=== PATIENT | male | born 1955 | race Caucasian/White ===

== ENCOUNTER → 2017-07-08 | Outpatient (CLI) | payer BC, MEDICARE ==
[~2017-07-08] MED LIST: Acetaminophen-1 EAC1 PO; CLOP75 PO; CYCL10 PO; DIAZ5 PO; EFAV200 PO; KALETRA PO; LIDO700A20 TOP; METO50ER PO; METPRE4DP PO; Pravastatin Sod40 MG PO; SUSTIVA PO; TENO300 PO; VIREAD150 MG PO; Valium5 MG PO; Voltaren100 GM TOP
== END | disposition home or self-care (01) ==
LOC: LAB SRC 10:49 → LAB SHORT 10:49
DX: N39.0 Urinary tract infection, site not specified (principal)
CPT/HCPCS: 87077; 87086; 87186

== ENCOUNTER → 2017-08-09 | Outpatient (CLI) | payer MEDICARE, BC ==
[~2017-08-09] MED LIST changes: +AMLO5 PO; +ASPI81CH PO; +BIKTARVY 50-201 EACH PO; +PRAV20 PO; +Toprol Xl50 MG PO
[2017-08-09 12:08] LABS: Source, Urine Clean Catch
[2017-08-09 15:48] LABS: Appearance, Urine Clear (Clear); Bilirubin, Urine Neg (Neg); Blood, Urine Neg (Neg); Color, Urine Yellow (P-Yellow); Glucose Qualitative, Urine Neg (Neg); Ketones, Urine Neg (Neg); Leukocyte Esterase, Urine Neg (Neg); Nitrite, Urine Neg (Neg); Protein, Urine 1+ (Neg); Urobilinogen, Urine NORM (Normal)
== END ==
LOC: LAB SHORT 12:06 → LAB SRC 12:06
PROVIDERS: Nurse Practitioner Family
DX: R53.83 Other fatigue (principal); R82.99 Other abnormal findings in urine
CPT/HCPCS: 81003

== ENCOUNTER 2019-03-19 09:28 | Emergency (ER) | payer MEDICARE ==
[~2019-03-19] VITALS: Ht 172.7 cm; Wt 65.8 kg
[2019-03-19] MEDS ORDERED: Monodox100 MG PO (10:23)
== END 2019-03-19 10:30 | disposition home or self-care (01) ==
LOC: ER 09:28
DX: L03.115 Cellulitis of right lower limb (principal); I25.2 Old myocardial infarction; B20 Human immunodeficiency virus [HIV] disease; I10 Essential (primary) hypertension; Z87.891 Personal history of nicotine dependence; Z79.899 Other long term (current) drug therapy; Z88.1 Allergy status to other antibiotic agents
CPT/HCPCS: 99282

== ENCOUNTER 2020-05-04 09:35 | Observation (INO) | payer MEDICARE ==
[~2020-05-04] VITALS: Ht 170.2 cm; Wt 60.9 kg
[~2020-05-04 09:35] MED LIST changes: +Monodox100 MG PO
[2020-05-04] MEDS ORDERED: Prinivil10 MG PO (10:06)
[2020-05-04] MEDS ORDERED: METO50ER PO (10:07)
--- NOTE | 2020-05-04 15:10 | NUR ---
1500 PATIENT IS S/P PTCA AND STENT OF THE RCA AND PDA, CHEST PAIN INCREASED FROM 2/10 TO 7-8/10, STAT EKG DONE AND MD CALLED TO THE BEDSIDE. CONTINUE TO MONITOR AND STAT ECHO ORDERED TO THE DONE AT THE BEDSIDE.
[2020-05-04] MEDS ORDERED: ABAT250V (15:18)
[2020-05-04] MEDS ORDERED: HYDCHL25 PO (15:18)
[2020-05-04] MEDS ORDERED: PLAVIX75 MG PO (15:18)
--- NOTE | 2020-05-04 15:57 | NUR ---
PAIN SETTLING DOWN. WAXING AND WAINING BETWEEN 2-4/[address] RAMIREZ FREQUENTLY AT THE BEDSIDE TO CHECK ON PAITENT. SECOND LITER INFUSED AND NOW FLUIDS ORDERED AT 100 ML AN HOUR ORDERED. CONTINUE TO MONITOR.
--- NOTE | 2020-05-04 17:53 | NUR ---
SHIFT SUMMARY, ASSUMED CARE PT ARRIVED FROM [facility] AT APPROXIMATELY 1625. PT HAD TWO STENTS PLACED VIA RIGHT GROIN ACCESS. PT WAS IN RECOVERY AND PREPARED TO DISCHARGE HOME WHEN HE BECAME DIAPHORETIC AND HAD CHEST PAIN/PRESSURE. PT WAS THEN ADMITTED FOR EXTENDED RECOVERY TO PCU. PT'S GROIN ACCESS SITE IS C/D/I AND HAS A PRESSURE DRESSING. PT HAS REMAINED LAYING FLAT AND HAS HAD SOME INTERMITTEN CHEST PAIN BUT HAS REFUSED DILAUDID AT THIS TIME SINCE IT IS NOT CONSTANT. PT IS ON TELE AND IS READING SR AT 60 bpm. PT REPORTS PREVIOUS MN AND BYPASS WHILE IN [place]. PT REPORTS HE QUIT SMOKING ABOUT 3 WEEKS AGO AND DOES NOT DRINK OR USE DRUGS OTHER THAN MJ SEVERAL TIMES A WEEK. PT HAS NS RUNNING AT 100mL/HR AND IS IN BED RESTING AT THIS TIME. VS STABLE, PT ON RA
[2020-05-05 04:14] LABS: BASOPHILS ABSOLUTE AUTO 0.05 K/mm3 (0.00-0.23); BASOPHILS PERCENT AUTO 1 % (0-2); EOSINOPHILS ABSOLUTE AUTO 0.17 K/mm3 (0.00-0.68); EOSINOPHILS PERCENT AUTO 2 % (0-6); Hematocrit 41.3 % (37.0-53.0); Hemoglobin 14.2 g/dL (13.5-17.5); IMMATURE GRAN ABSOLUTE AUTO 0.02 K/mm3 (0.00-0.10); IMMATURE GRAN PERCENT AUTO 0 % (0-1); LYMPHOCYTES ABSOLUTE AUTO 2.36 K/mm3 (0.84-5.20); LYMPHOCYTES PERCENT AUTO 28 % (21-46); MONOCYTES ABSOLUTE AUTO 0.88 K/mm3 (0.16-1.47); MONOCYTES PERCENT AUTO 11 % (4-13); Mean Corpuscular HGB 30.8 pg (26.0-34.0); Mean Corpuscular HGB Conc 34.4 g/dL (31.5-36.5); Mean Corpuscular Volume 90 fL (80-100); Mean Platelet Volume 10.5 fL (9.1-12.4); NEUTROPHILS ABSOLUTE AUTO 4.87 K/mm3 (1.96-9.15); NEUTROPHILS PERCENT AUTO 58 % (41-73); Platelet Count 196 K/mm3 (150-400); RDW Coefficient Variation 13.9 % (11.7-14.2); RDW Standard Deviation 45.1 fL (35.1-46.3); Red Blood Cell Count 4.61 M/mm3 (4.30-5.90); White Blood Cell Count 8.35 K/mm3 (4.00-11.30)
[2020-05-05 04:29] LABS: Anion Gap 6 mmol/L (6-16); Blood Urea Nitrogen 16 mg/dL (8-24); CO2, Blood 26 mmol/L (21-32); Calcium, Blood 7.7 mg/dL (8.5-10.1); Chloride, Blood 109 mmol/L (98-108); Glomerular Filtration Rate >60 (60-); Glucose, Blood 101 mg/dL (70-99); Potassium, Blood 3.8 mmol/L (3.5-5.5); Sodium, Blood 141 mmol/L (136-145)
--- NOTE | 2020-05-05 05:47 | NUR ---
SHIFT SUMMARY PT IS ALERT, ORIENTED AND COOPERATIVE WITH CARE. 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 PT STATES MINIMAL PAIN, WELL CONTROLLED WITH PRN MEDICATIONS. PT STATED INTERMITTENT SHOOTING CHEST PAIN AT THE START OF SHIFT SUBSIDING TO DULL TIGHT FEELING BY AM WITH USE OF PRN MEDICATIONS. FEMORAL SITE IS UNCHANGED FROM START OF SHIFT, SMALL AMOUNT OF BLOOD AT INCISION, NO BRUISING, FIRMNESS, TENDERNESS, OR SWELLING. VITALS WERE STABLE WITH BP 140'S/70'S. HR 70-90'S. TELE SHOWING SINUS RHYTHM. PT HAD A QUIET UNEVENTFUL NIGHT AND IS EAGER FOR DISCHARGE.
--- NOTE | 2020-05-05 07:51 | NUR ---
ASSUMED CARE FROM NOC RN PT WAS SLEEPING DURING REPORT BUT WAS AROUSABLE WHEN EXAMINING THE GROIN ACCESS SITE. THE DRESSING IS C/D/I, NO ADDITIONAL DRAINAGE SINCE RN MIGUEL'S PREVIOUS EXAM YESTERDAY. PT WOKE FOR VITALS AND BREAKFAST THIS MORNING AND WAS ABLE TO SIT AT THE BEDSIDE FOR BREAKFAST. PT DENIED CHEST PAIN AND PRESSURE AND SOB.
--- NOTE | 2020-05-05 14:46 | NUR ---
DISCHARGE PT HAS DISCHARGED WITH INSTRUCTIONS ON CARING FOR THE FEMORAL SITE WELL ACTIVITY RESTRICTIONS. PT WAS ABLE TO GET DRESSED INDEPENDENTLY AND LEFT WITH HIS SPOUSE AND THE STRIPPER APPRENTICE VIA WHEELCHAIR. VS STABLE, PT DENIED CHEST PAIN AND CHEST PRESSURE. PT DISCHARGED AT APPROXIMATELY 1440.
== END 2020-05-05 14:20 | disposition home or self-care (01) ==
LOC: MHTC 09:35 → PCU 16:31 → MHTC 16:32 → PCU 16:32
PROVIDERS: Internal Medicine Cardiovascular Disease; ADMIT Internal Medicine Cardiovascular Disease
DX: I25.110 Atherosclerotic heart disease of native coronary artery with unstable angina pectoris (principal); R94.39 Abnormal result of other cardiovascular function study; I95.9 Hypotension, unspecified; I35.0 Nonrheumatic aortic (valve) stenosis; I10 Essential (primary) hypertension; E78.5 Hyperlipidemia, unspecified; F15.11 Other stimulant abuse, in remission; Z21 Asymptomatic human immunodeficiency virus [HIV] infection status; Z87.891 Personal history of nicotine dependence; Z91.14 Patient's other noncompliance with medication regimen; Z95.1 Presence of aortocoronary bypass graft; Z79.82 Long term (current) use of aspirin
CPT/HCPCS: 36415; 76937; 80048; 85025; 85347; 93005; 93010; 93308; 93459; 96374; 96376; 99152; 99153; A9270; C1725; C1760; C1769; C1874; C1887; C1894; C9600; G0378; J0360; J1644; J2250; J2270; J3010; J7030; J7050; Q9967

== ENCOUNTER 2020-05-10 15:02 | Emergency (ER) | payer MEDICARE ==
[~2020-05-10] VITALS: Ht 170.2 cm; Wt 64.0 kg
[~2020-05-10 15:02] MED LIST changes: +ABAT250V; +HYDCHL25 PO; +PLAVIX75 MG PO; +Prinivil10 MG PO
[2020-05-10] MEDS ORDERED: ROSUVASTATIN CAL5 MG PO (16:13)
== END 2020-05-10 16:26 | disposition home or self-care (01) ==
LOC: ER 15:02
DX: G89.18 Other acute postprocedural pain (principal); R10.31 Right lower quadrant pain; L76.32 Postprocedural hematoma of skin and subcutaneous tissue following other procedure; F17.210 Nicotine dependence, cigarettes, uncomplicated; Y84.9 Medical procedure, unspecified as the cause of abnormal reaction of the patient, or of later complication, without mention of misadventure at the time of the procedure; Z79.82 Long term (current) use of aspirin; Z88.6 Allergy status to analgesic agent; Z79.02 Long term (current) use of antithrombotics/antiplatelets; Z79.899 Other long term (current) drug therapy; Z88.2 Allergy status to sulfonamides; Z88.1 Allergy status to other antibiotic agents
CPT/HCPCS: 93926; 99283-25

== ENCOUNTER 2022-09-04 14:41 | Inpatient (IN) | payer MEDICARE ==
[~2022-09-04] VITALS: Ht 170.2 cm; Wt 69.2 kg
[~2022-09-04 14:41] MED LIST changes: -BIKTARVY 50-201 EAC1 PO; -CEPH500 PO; -EPCLUSA 400 MG1 EAC1 PO; -FLUT1DIS8 INH; -Isosorbide Mono30 MG PO; -LISI5 PO; -TAMS.4ER PO
[2022-09-04 15:15] LABS: BASOPHILS ABSOLUTE AUTO 0.06 K/mm3 (0.00-0.23); BASOPHILS PERCENT AUTO 0 % (0-2); EOSINOPHILS ABSOLUTE AUTO 0.03 K/mm3 (0.00-0.68); EOSINOPHILS PERCENT AUTO 0 % (0-6); Hematocrit 44.2 % (37.0-53.0); Hemoglobin 15.6 g/dL (13.5-17.5); IMMATURE GRAN ABSOLUTE AUTO 0.05 K/mm3 (0.00-0.10); IMMATURE GRAN PERCENT AUTO 0 % (0-1); LYMPHOCYTES ABSOLUTE AUTO 1.88 K/mm3 (0.84-5.20); LYMPHOCYTES PERCENT AUTO 12 % (21-46); MONOCYTES ABSOLUTE AUTO 1.69 K/mm3 (0.16-1.47); MONOCYTES PERCENT AUTO 11 % (4-13); Mean Corpuscular HGB 32.2 pg (26.0-34.0); Mean Corpuscular HGB Conc 35.3 g/dL (31.5-36.5); Mean Corpuscular Volume 91 fL (80-100); Mean Platelet Volume 9.9 fL (9.1-12.4); NEUTROPHILS ABSOLUTE AUTO 11.57 K/mm3 (1.96-9.15); NEUTROPHILS PERCENT AUTO 76 % (41-73); Platelet Count 209 K/mm3 (150-400); RDW Coefficient Variation 12.5 % (11.7-14.2); RDW Standard Deviation 41.7 fL (35.1-46.3); Red Blood Cell Count 4.84 M/mm3 (4.30-5.90); White Blood Cell Count 15.28 K/mm3 (4.00-11.30)
[2022-09-04 15:49] LABS: Albumin, Blood 3.1 g/dL (3.4-5.0); Albumin/Globulin Ratio 0.6 (0.8-1.8); Bilirubin, Total 0.5 mg/dL (0.1-1.0); Bun/Creatinine Ratio 15.9 (12.0-20.0); Calcium, Blood 8.7 mg/dL (8.5-10.1); Creatinine, Blood 1.64 mg/dL (0.60-1.20); Globulin, Blood 5.1 g/dL (2.2-4.0); Magnesium, Blood 2.3 mg/dL (1.6-2.4); Potassium, Blood 3.8 mmol/L (3.5-5.5); Total Protein, Blood 8.2 g/dL (6.4-8.2)
[2022-09-04 16:29] LABS: Source, Urine Clean Catch
[2022-09-04] MEDS ORDERED: HYDCHL25 PO (16:37)
[2022-09-04] MEDS ORDERED: LISI5 PO (16:37)
[2022-09-04 17:07] LABS: Appearance, Urine Hazy (Clear); Bilirubin, Urine Neg (Neg); Blood, Urine 2+ (Neg); Color, Urine Yellow (P-Yellow); Glucose Qualitative, Urine Neg (Neg); Ketones, Urine Neg (Neg); Leukocyte Esterase, Urine 3+ (Neg); Nitrite, Urine Pos (Neg); Protein, Urine 2+ (Neg); Urobilinogen, Urine NORM (Normal)
[2022-09-04 17:20] LABS: Bacteria Many /hpf; Squamous Epithelial Cells Rare /hpf (Few); White Blood Cells, Urine 50-100 /hpf (0-5)
[2022-09-04] MEDS ORDERED: BIKTARVY 50-201 EAC1 PO (20:00)
[2022-09-04] MEDS ORDERED: EPCLUSA 400 MG1 EAC1 PO (20:00)
[2022-09-04] MEDS ORDERED: FLUT1DIS8 INH (20:01)
[2022-09-04] MEDS ORDERED: TAMS.4ER PO (20:01)
[2022-09-04 21:14] VITALS: BP 142/68
[2022-09-05 03:35] VITALS: BP 129/83
[2022-09-05 05:56] LABS: BASOPHILS ABSOLUTE AUTO 0.03 K/mm3 (0.00-0.23); BASOPHILS PERCENT AUTO 0 % (0-2); EOSINOPHILS ABSOLUTE AUTO 0.02 K/mm3 (0.00-0.68); EOSINOPHILS PERCENT AUTO 0 % (0-6); Hematocrit 39.3 % (37.0-53.0); Hemoglobin 13.7 g/dL (13.5-17.5); IMMATURE GRAN ABSOLUTE AUTO 0.06 K/mm3 (0.00-0.10); IMMATURE GRAN PERCENT AUTO 1 % (0-1); LYMPHOCYTES ABSOLUTE AUTO 1.33 K/mm3 (0.84-5.20); LYMPHOCYTES PERCENT AUTO 11 % (21-46); MONOCYTES ABSOLUTE AUTO 1.18 K/mm3 (0.16-1.47); MONOCYTES PERCENT AUTO 10 % (4-13); Mean Corpuscular HGB 31.6 pg (26.0-34.0); Mean Corpuscular HGB Conc 34.9 g/dL (31.5-36.5); Mean Corpuscular Volume 91 fL (80-100); Mean Platelet Volume 10.2 fL (9.1-12.4); NEUTROPHILS ABSOLUTE AUTO 9.75 K/mm3 (1.96-9.15); NEUTROPHILS PERCENT AUTO 79 % (41-73); Platelet Count 175 K/mm3 (150-400); RDW Coefficient Variation 12.3 % (11.7-14.2); RDW Standard Deviation 41.1 fL (35.1-46.3); Red Blood Cell Count 4.34 M/mm3 (4.30-5.90); White Blood Cell Count 12.37 K/mm3 (4.00-11.30)
[2022-09-05 06:27] LABS: Bun/Creatinine Ratio 16.4 (12.0-20.0); Calcium, Blood 7.6 mg/dL (8.5-10.1); Creatinine, Blood 1.46 mg/dL (0.60-1.20); Potassium, Blood 3.7 mmol/L (3.5-5.5)
--- NOTE | 2022-09-05 06:30 | NUR ---
SHIFT SUMMARY REPORT FROM ED RN- PT BROUGHT TO ROOM VIA WC, PT AMBULATED TO BR WITHOUT PROBLEMS- PT ASSESSED FOR RISK OF IGNITION, PT DENIED ANY ITEMS OF IGNITION, PT FEBRILE IN NIGHT - PT MEDICATED WITH TYLENOL- PT FEVER DECREASED, PT REPORTED FEELING LIKE HE WAS EXPERIENCING URINE RETENTION AND FREQUENCY, POST RESIDUAL BLADDER SCAN DONE WITH 0 IN BLADDER- 629 PT CALLED AND REPORTED IV SORE- SMALL AMOUNT OF FLUID INFLITRAION APPEARED, STOPPED IV AND NEW IV PLACED- BED LOW POSITION AND CALL LIGHT WITHIN REACH T/O NIGHT
[2022-09-05 08:29] VITALS: BP 137/72
[2022-09-05] MEDS ORDERED: CLOP75 PO (14:10)
[2022-09-05] MEDS ORDERED: Isosorbide Mono30 MG PO (14:10)
[2022-09-05 16:26] VITALS: BP 109/60
--- NOTE | 2022-09-05 17:02 | NUR ---
DAYSHIFT SUMMARY Patient alert & oriented x3. Patient worked with therapy today. IV ABX administred. Blood culture results pending. NS infusing continous. No acute changes to patient status. Provided education on ignition sources & risk of injury with oxygen use. Patient denies smoking, and verbalizes understanding. Patient & family deny having ignition sources on person. Will continue plan of care.
[2022-09-05 19:44] VITALS: BP 159/72
[2022-09-06 04:25] VITALS: BP 142/83
[2022-09-06 05:36] LABS: BASOPHILS ABSOLUTE AUTO 0.04 K/mm3 (0.00-0.23); BASOPHILS PERCENT AUTO 0 % (0-2); EOSINOPHILS ABSOLUTE AUTO 0.19 K/mm3 (0.00-0.68); EOSINOPHILS PERCENT AUTO 2 % (0-6); Hematocrit 37.6 % (37.0-53.0); Hemoglobin 13.3 g/dL (13.5-17.5); IMMATURE GRAN ABSOLUTE AUTO 0.03 K/mm3 (0.00-0.10); IMMATURE GRAN PERCENT AUTO 0 % (0-1); LYMPHOCYTES PERCENT AUTO 17 % (21-46); MONOCYTES PERCENT AUTO 11 % (4-13); Mean Corpuscular HGB 31.7 pg (26.0-34.0); Mean Corpuscular HGB Conc 35.4 g/dL (31.5-36.5); Mean Corpuscular Volume 90 fL (80-100); Mean Platelet Volume 10.5 fL (9.1-12.4); NEUTROPHILS ABSOLUTE AUTO 7.17 K/mm3 (1.96-9.15); NEUTROPHILS PERCENT AUTO 70 % (41-73); Platelet Count 188 K/mm3 (150-400); RDW Coefficient Variation 12.5 % (11.7-14.2); RDW Standard Deviation 41.1 fL (35.1-46.3); Red Blood Cell Count 4.19 M/mm3 (4.30-5.90); White Blood Cell Count 10.33 K/mm3 (4.00-11.30)
--- NOTE | 2022-09-06 05:52 | NUR ---
PATIENT REMAINS ALERT AND ORIENTED X4, COOPERATIVE WITH CARE, BUT BUT FRUSTRATED THAT HE CANNOT GO HOME. HTN, AND LOW GRADE FEVER TREATED PER MAR. ABT'S AND IV FLUIDS INFUSING. NO OTHER ISSUES TO REPORT.
[2022-09-06 06:02] LABS: Albumin, Blood 2.2 g/dL (3.4-5.0); Albumin/Globulin Ratio 0.5 (0.8-1.8); Bilirubin, Total 0.3 mg/dL (0.1-1.0); Bun/Creatinine Ratio 18.7 (12.0-20.0); Calcium, Blood 7.9 mg/dL (8.5-10.1); Creatinine, Blood 1.23 mg/dL (0.60-1.20); Globulin, Blood 4.1 g/dL (2.2-4.0); Potassium, Blood 4.1 mmol/L (3.5-5.5); Total Protein, Blood 6.3 g/dL (6.4-8.2)
[2022-09-06 07:47] VITALS: BP 135/82
[2022-09-06 15:09] VITALS: BP 119/64
--- NOTE | 2022-09-06 16:48 | NUR ---
SHIFT SUMMARY PATIENT IS ALERT AND ORIENTED. PATIENT HAS HAD NO ACUTE EVENTS THIS SHIFT. VITAL SIGNS REVIEWED. PATIENT IS ADMITED FOR A UTI. PATIENT REQUESTED IV FLUIDS BE DCD. IS AWARE AND WAS AGREEABLE. PATIENT HAD A SHOWER TODAY IND. PATIENTS BROUGHT IN PATIENTS HOME MEDS. PATIENT HAS NOT COMPLAINED OF PAIN, NAUSEA, SOB OR VOMITTING THIS SHIFT. BED IN LOCKED AND LOWEST POSITION. CALL LIGHT IN PLACE. WILL MONITOR UNTIL SHIFT CHANGE.
[2022-09-06 20:58] VITALS: BP 167/82
[2022-09-06 21:22] VITALS: BP 142/80
[2022-09-07 04:17] VITALS: BP 140/75
[2022-09-07 06:03] LABS: BASOPHILS ABSOLUTE AUTO 0.03 K/mm3 (0.00-0.23); BASOPHILS PERCENT AUTO 0 % (0-2); EOSINOPHILS PERCENT AUTO 4 % (0-6); Hematocrit 42.3 % (37.0-53.0); Hemoglobin 14.7 g/dL (13.5-17.5); IMMATURE GRAN ABSOLUTE AUTO 0.03 K/mm3 (0.00-0.10); IMMATURE GRAN PERCENT AUTO 0 % (0-1); LYMPHOCYTES ABSOLUTE AUTO 1.76 K/mm3 (0.84-5.20); LYMPHOCYTES PERCENT AUTO 21 % (21-46); MONOCYTES ABSOLUTE AUTO 0.99 K/mm3 (0.16-1.47); MONOCYTES PERCENT AUTO 12 % (4-13); Mean Corpuscular HGB 31.3 pg (26.0-34.0); Mean Corpuscular HGB Conc 34.8 g/dL (31.5-36.5); Mean Corpuscular Volume 90 fL (80-100); Mean Platelet Volume 10.5 fL (9.1-12.4); NEUTROPHILS ABSOLUTE AUTO 5.38 K/mm3 (1.96-9.15); NEUTROPHILS PERCENT AUTO 63 % (41-73); Platelet Count 241 K/mm3 (150-400); RDW Coefficient Variation 12.5 % (11.7-14.2); RDW Standard Deviation 41.5 fL (35.1-46.3); Red Blood Cell Count 4.69 M/mm3 (4.30-5.90); White Blood Cell Count 8.49 K/mm3 (4.00-11.30)
--- NOTE | 2022-09-07 06:21 | NUR ---
PATIENT REMAINS ALERT AND ORIENED X4, VSS ON RA. REFUSING IV FLUIDS. PER DAY SHIFT NURSE, WAS MADE AWARE. CONTINUES TO HAVE GOOD I/O'S. REMAINED SL THROUGHOUT THE NIGHT. IS INDEPENDENT IN ROOM. NO OTHER ISSUES TO REPORT.
[2022-09-07 06:33] LABS: Albumin, Blood 2.7 g/dL (3.4-5.0); Albumin/Globulin Ratio 0.6 (0.8-1.8); Bilirubin, Total 0.2 mg/dL (0.1-1.0); Bun/Creatinine Ratio 20.6 (12.0-20.0); Calcium, Blood 8.4 mg/dL (8.5-10.1); Creatinine, Blood 1.07 mg/dL (0.60-1.20); Globulin, Blood 4.6 g/dL (2.2-4.0); Total Protein, Blood 7.3 g/dL (6.4-8.2)
[2022-09-07 07:30] VITALS: BP 144/75
[2022-09-07] MEDS ORDERED: CEPH500 PO (11:56)
--- NOTE | 2022-09-07 13:44 | NUR ---
DC- PT DC IN STABLE CONDITION WITH AND ALL BELONGINGS AT 1325. ALL DC PAPERWORK DISCUSSED AND QUESTIONS ANSWERED.
[2022-09-25] MEDS ORDERED: COMBIVENT RESPIM4 G1 (18:07)
[2022-09-25] MEDS ORDERED: Voltaren100 GM (18:08)
[2022-09-25] MEDS ORDERED: TIOT18 INH (18:09)
[2022-09-25] MEDS ORDERED: METO25ER PO (18:09)
[2022-09-25] MEDS ORDERED: Nitrostat0.3 MG (18:09)
== END 2022-09-07 13:21 | disposition home or self-care (01) | DRG 690 ==
LOC: ER 14:41 → MEDS 14:42
PROVIDERS: Hospitalist; Nurse Practitioner Acute Care; Physician Assistant; ADMIT Internal Medicine
DX: N10 Acute pyelonephritis (principal); B20 Human immunodeficiency virus [HIV] disease; E87.1 Hypo-osmolality and hyponatremia; N17.9 Acute kidney failure, unspecified; B19.20 Unspecified viral hepatitis C without hepatic coma; E86.0 Dehydration; E86.1 Hypovolemia; E78.5 Hyperlipidemia, unspecified; N40.0 Benign prostatic hyperplasia without lower urinary tract symptoms; I10 Essential (primary) hypertension; G47.00 Insomnia, unspecified; J44.9 Chronic obstructive pulmonary disease, unspecified; I25.10 Atherosclerotic heart disease of native coronary artery without angina pectoris; B96.20 Unspecified Escherichia coli [E. coli] as the cause of diseases classified elsewhere; Z88.8 Allergy status to other drugs, medicaments and biological substances; Z79.811 Long term (current) use of aromatase inhibitors; Z79.82 Long term (current) use of aspirin; Z79.899 Other long term (current) drug therapy; I25.2 Old myocardial infarction; Z87.891 Personal history of nicotine dependence
CPT/HCPCS: 36415; 76770; 80048; 80053; 81001; 83605; 83690; 83735; 85025; 87040; 87077; 87086; 87186; 93005; 93010; 96374; 96375; 99285-25; A9270; G0378; J0696; J1650; J2405; J7030

== ENCOUNTER → 2022-09-04 | Outpatient (CLI) | payer MEDICARE ==
[~2022-09-04] MED LIST changes: +BIKTARVY 50-201 EAC1 PO; +CEPH500 PO; +EPCLUSA 400 MG1 EAC1 PO; +FLUT1DIS8 INH; +Isosorbide Mono30 MG PO; +LISI5 PO; +ROSUVASTATIN CAL5 MG PO; +TAMS.4ER PO
[2022-09-04 20:06] LABS: Appearance, Urine Cloudy (Clear); Bilirubin, Urine Neg (Neg); Blood, Urine 3+ (Neg); Color, Urine Yellow (P-Yellow); Glucose Qualitative, Urine Neg (Neg); Ketones, Urine Neg (Neg); Leukocyte Esterase, Urine 3+ (Neg); Nitrite, Urine Pos (Neg); Protein, Urine 3+ (Neg); Urobilinogen, Urine NORM (Normal)
[2022-09-04 20:25] LABS: Bacteria Many /hpf; Red Blood Cells, Urine 0-2 /hpf (0-2); Squamous Epithelial Cells Few /hpf (Few); White Blood Cells, Urine TNTC /hpf (0-5)
== END | disposition home or self-care (01) ==
LOC: LAB 13:40 → LAB SHORT 13:40
PROVIDERS: Family Medicine
DX: R10.9 Unspecified abdominal pain (principal)
CPT/HCPCS: 81001; 87077; 87086; 87186

== ENCOUNTER 2022-09-26 06:52 | Day surgery (SDC) | payer MEDICARE ==
[2022-09-26] VITALS (9 sets, daily range): BP systolic 90–127; BP diastolic 48–78
[~2022-09-26] VITALS: Ht 170.2 cm; Wt 72.0 kg
[~2022-09-26 06:52] MED LIST changes: +BIKTARVY 50-201 EAC1 PO; +CEPH500 PO; +COMBIVENT RESPIM4 G1; +EPCLUSA 400 MG1 EAC1 PO; +FLUT1DIS8 INH; +Isosorbide Mono30 MG PO; +LISI5 PO; +METO25ER PO; +Nitrostat0.3 MG; +TAMS.4ER PO; +TIOT18 INH; +Voltaren100 GM
--- NOTE | 2022-09-26 09:43 | NUR ---
PT RETURNED TO RECOVERY ROOM IN A RECLINER. RIGHT RADIAL TR BAND SITE SOFT NON-TENDER WITH NO HEMATOMA, NO PULSATILE BLEEDING AND WRIST BOARD IN PLACE. PT DENIES CHEST PAIN. PT EATING BREAKFAST. CALL LIGHT IN REACH.
--- NOTE | 2022-09-26 10:53 | NUR ---
10 CC OF AIR REMOVED OUT NOW DEFLATED RIGHT TR BAND OVER 10 MIN; NO HEMATOMA, NO PULSATILE BLEEDING. DISCHARGE INSTRUCTIONS REVIEWED ALL QUESTIONS ANSWERED.
--- NOTE | 2022-09-26 11:13 | NUR ---
NO CHANGES TO DEFLATED RIGHT TR BAND.
--- NOTE | 2022-09-26 12:05 | NUR ---
DEFLATED RIGHT TR BAND REMOVED AND POLYMEM PLACED OVER R RAD SITE WITH WRIST BOARD IN PLACE. 20 IV DISCONTINUED FROM RIGHT AC WITH INTACT CANNULA. RIGHT RADIAL SITE STILL SOFT NON-TENDER WITH NO HEMATOMA, NO PULSATILE BLEEDING. PT ESCORTED OUT VIA WHEELCHAIR ESCORT.
== END 2022-09-26 12:05 | disposition home or self-care (01) ==
LOC: MHTC 06:52
DX: I25.10 Atherosclerotic heart disease of native coronary artery without angina pectoris (principal); T82.898A Other specified complication of vascular prosthetic devices, implants and grafts, initial encounter; Y71.8 Miscellaneous cardiovascular devices associated with adverse incidents, not elsewhere classified; I25.2 Old myocardial infarction; Z95.1 Presence of aortocoronary bypass graft; Z88.2 Allergy status to sulfonamides; Z79.02 Long term (current) use of antithrombotics/antiplatelets; Z79.899 Other long term (current) drug therapy
CPT/HCPCS: 76937; 93455; 99152; 99153; C1769; C1887; C1894; J1644; J2250; J3010; J7030; J7050; Q9967

== ENCOUNTER → 2023-06-03 | Outpatient (CLI) | payer MEDICARE | LOC: LAB 16:30 → LAB SHORT 16:30 | DX: R30.0 Dysuria (principal); R10.9 Unspecified abdominal pain | CPT/HCPCS: 87077; 87086; 87186 ==

== ENCOUNTER → 2023-06-03 | Outpatient (CLI) | payer MEDICARE ==
[2023-06-04 11:36] LABS: BASOPHILS ABSOLUTE AUTO 0.07 K/mm3 (0.00-0.23); BASOPHILS PERCENT AUTO 1 % (0-2); EOSINOPHILS ABSOLUTE AUTO 0.15 K/mm3 (0.00-0.68); EOSINOPHILS PERCENT AUTO 2 % (0-6); Hematocrit 45.2 % (37.0-53.0); Hemoglobin 15.4 g/dL (13.5-17.5); IMMATURE GRAN ABSOLUTE AUTO 0.02 K/mm3 (0.00-0.10); IMMATURE GRAN PERCENT AUTO 0 % (0-1); LYMPHOCYTES ABSOLUTE AUTO 1.46 K/mm3 (0.84-5.20); LYMPHOCYTES PERCENT AUTO 19 % (21-46); MONOCYTES ABSOLUTE AUTO 1.43 K/mm3 (0.16-1.47); MONOCYTES PERCENT AUTO 18 % (4-13); Mean Corpuscular HGB Conc 34.1 g/dL (31.5-36.5); Mean Corpuscular Volume 91 fL (80-100); Mean Platelet Volume 11.6 fL (9.1-12.4); NEUTROPHILS ABSOLUTE AUTO 4.75 K/mm3 (1.96-9.15); NEUTROPHILS PERCENT AUTO 60 % (41-73); Platelet Count 145 K/mm3 (150-400); RDW Coefficient Variation 12.6 % (11.7-14.2); RDW Standard Deviation 41.9 fL (35.1-46.3); Red Blood Cell Count 4.96 M/mm3 (4.30-5.90); White Blood Cell Count 7.88 K/mm3 (4.00-11.30)
[2023-06-04 12:02] LABS: Alanine Aminotransfer (ALT/SGP 40 U/L (12-78); Albumin, Blood 3.2 g/dL (3.4-5.0); Albumin/Globulin Ratio 0.8 (0.8-1.8); Alk Phos 91 U/L (50-136); Anion Gap 9 mmol/L (3-11); Aspartate Aminotrans (AST/SGOT 53 U/L (12-37); Bilirubin, Total 0.3 mg/dL (0.1-1.0); Blood Urea Nitrogen 14 mg/dL (8-24); CO2, Blood 30 mmol/L (21-32); Calcium, Blood 8.2 mg/dL (8.5-10.1); Chloride, Blood 100 mmol/L (98-108); Globulin, Blood 3.9 g/dL (2.2-4.0); Glomerular Filtration Rate 55 (60-); Glucose, Blood 91 mg/dL (70-99); Potassium, Blood 3.8 mmol/L (3.5-5.5); Sodium, Blood 135 mmol/L (136-145); Total Protein, Blood 7.1 g/dL (6.4-8.2)
== END ==
LOC: LAB SHORT 16:30 → LAB 16:30
PROVIDERS: Family Medicine
DX: R30.0 Dysuria (principal); Z12.5 Encounter for screening for malignant neoplasm of prostate
CPT/HCPCS: 80053; 85025; 85651; G0103

== ENCOUNTER → 2024-04-16 | Outpatient (CLI) | payer MEDICARE ==
[2024-04-23 10:50] LABS: CALCIUM, URINE - PER 24H 79 mg/d (100-250); CALCIUM, URINE - PER VOLUME 7.2 mg/dL; CHLORIDE, URINE - PER 24H 104 mmol/d (140-250); CHLORIDE, URINE - PER VOLUME 95 mmol/L; CITRIC ACID, URINE - PER 24H 53 mg/d (320-1240); CITRIC ACID,URINE - PER VOLUME 48 mg/L; CREATININE, URINE - PER 24H 1177 mg/d (800-2100); CREATININE, URINE - PER VOLUME 107 mg/dL; HOURS COLLECTED 24 hr; MAGNESIUM, URINE - PER VOLUME 5.8 mg/dL; MAGNESIUM, URINE PER 24H 64 mg/d (12-199); OXALATE, URINE - PER 24H 24 mg/d (16-49); OXALATE, URINE - PER VOLUME 22 mg/L; PH, URINE 5.67 (5.00-7.50); PHOSPHORUS, URINE - PER 24H 517 mg/d (400-1300); PHOSPHORUS, URINE - PER VOLUME 47 mg/dL; POTASSIUM, URINE - PER 24H 25 mmol/d (25-125); POTASSIUM, URINE - PER VOLUME 23 mmol/L; SODIUM, URINE - PER 24H 104 mmol/d (51-286); SODIUM, URINE - PER VOLUME 95 mmol/L; SULFATE, URINE - PER 24H 10 mmol/d (6-30); SULFATE, URINE - PER VOLUME 9 mmol/L; TOTAL VOLUME 1100 mL; URIC ACID, URINE - PER 24H 356 mg/d (250-750); URIC ACID, URINE - PER VOLUME 32.4 mg/dL; URINE SUPERSATURATION INTERP Abnormal; URINE SUPERSATURATION, CAHPO4 0.65; URINE SUPERSATURATION, CAOX 5.14; URINE SUPERSATURATION, UA CALC 0.89
== END ==
LOC: LAB SHORT 11:15 → LAB 11:15 → LAB FUT 06-02 18:05
PROVIDERS: Family Medicine
DX: I65.23 Occlusion and stenosis of bilateral carotid arteries (principal); E78.00 Pure hypercholesterolemia, unspecified; I20.89 Other forms of angina pectoris; I10 Essential (primary) hypertension
CPT/HCPCS: 81003; 81050; 82131; 82140; 82340; 82436; 82507; 82570; 83735; 83935; 83945; 84105; 84133; 84300; 84392; 84560